=== PATIENT | male | born 1980 | race African-American/Black ===

== ENCOUNTER 2019-04-10 10:58 | Inpatient (IN) | payer OTHER ==
[2019-04-10 11:30] LABS: #Basophils 0.1 thou/uL (0.0-0.2); #Eosinphils 0.1 thou/uL (0.0-0.7); #Monocytes 0.5 thou/uL (0.11-0.59); #Neutrophils 3.1 thou/uL (1.40-6.50); %Basophils 1.2 % (0.0-1.0); %Eosinophils 0.9 % (0.0-10.0); %Lymphocytes 35.4 % (21.0-51.0); %Neutrophils 54.5 % (42.0-75.0); Hemoglobin 15.4 g/dL (14.0-18.0); Mean Corpuscular HGB CONC 34.4 g/dL (32.0-36.0); Mean Corpuscular Hemoglobin 28.2 pg (27.0-31.0); Mean Corpuscular Volume 81.9 fL (78.0-98.0); Mean Platelet Volume 8.6 fL (7.4-10.4); Platelet Count 271 thou/uL (130-400); RBC Distribution Width 11.6 % (11.5-14.5); Red Blood Cell (RBC) Count 5.47 mill/uL (4.70-6.10); White Blood Cell (WBC) Count 5.7 thou/uL (4.8-10.8)
[2019-04-10 11:47] LABS: Bilirubin Negative (Negative); Blood, Urine Negative (Negative); Clarity Clear (Clear); Glucose, Urine (Dipstick) Greater than 1000 mg/dL (Negative); Leukocyte Negative Leu/uL (Negative); Nitrite Negative (Negative); Protein, Urine (Dipstick) Negative (Neg-Trace); Urobilinogen Normal mg/dL (Less than 2)
[2019-04-10 11:55] LABS: ALT (SGPT) 20 U/L (8-55); AST (SGOT) 18 U/L (5-34); Albumin 4.8 g/dL (3.5-5.0); Alkaline Phosphatase 195 U/L (40-150); Anion Gap 21 mmol/L (10-20); BUN (Urea Nitrogen) 11 mg/dL (8.9-20.6); Bilirubin, Total 0.6 mg/dL (0.2-1.2); Calc. Creatinine Clearance 0 mL/min (70-130); Calcium 10.5 mg/dL (7.8-10.44); Carbon Dioxide 21 mmol/L (22-29); Chloride 95 mmol/L (98-107); Estimated GFR-MDRD 56; Globulin 3.4 g/dL (2.4-3.5); Glucose 514 mg/dL (70-105); Lipase 20 U/L (8-78); Potassium 4.1 mmol/L (3.5-5.1); Protein, Total 8.2 g/dL (6.0-8.3); Sodium 133 mmol/L (136-145)
[2019-04-10] MEDS ORDERED: Insulin Regular 100 units/100 ml in NS IVPB SCH (12:45)
[2019-04-10] MEDS ORDERED: 1/2 NS w/KCL 20 mEq 1,000 ML IV SCH (12:45)
--- NOTE | 2019-04-10 14:02 | PDOC.FPRHP ---
- History of Present Illness Chief Complaint: polydipsia/polyuria History of Present Illness: 39 yo previously healthy M, currently incarcerated, presents for polydipsia and polyuria. Patient states that he has been very thirsty and voiding frequently over the past month. He went to the [facility] as he was concerned that he may have diabetes. They checked his blood sugar and it was in the 500s, so he was sent to the hospital. Associated symptoms include wt loss of 26 lbs over the past month. Patient has a family history of diabetes in his mother and maternal grandmother , unknown type. - Allergies/Adverse Reactions Allergies Allergy/AdvReac Type Severity Reaction Status Date / Time No Known Allergies Allergy Unverified 04/10/19 12:30 - History PMHx: None PSHx: [place] teeth FHx: DM in mother, m GM. HTN in mother. Cancer, unknown type in mother and uncle. Denies cardiac disease. Social: Denies t/a/d. Currently incarcerated. Says he is to be released in the next few days. - Review of Systems General: reports: weight/appetite/sleep changes (decreased weight, normal appetite and eating well) Eyes: denies: eye pain, vision changes ENT: denies: nasal congestion, rhinorrhea Respiratory: denies: cough, congestion, shortness of breath Cardiovascular: reports: chest pain (reports chest pain last night, now resolved ). denies: palpitation Gastrointestinal: denies: nausea, vomiting, diarrhea, constipation, abdominal pain, GI bleeding Genitourinary: reports: polyuria. denies: dysuria, other (hematuria) Skin: denies: rashes, lesions Musculoskeletal: denies: pain, tenderness Neurological: denies: numbness, weakness Psychological: denies: anxiety, depression - Vital signs 144/81, Pulse: 96, Resp: 18, Temp: 98.8 ORAL, Pain: 0, O2 sat: 100 on RA, Time: 04/10/2019 12:21. - Physical Exam Constitutional: NAD, awake, alert and oriented, well developed HEENT: normocephalic and atraumatic, PERRLA, conjunctiva clear, MMM, oropharynx clear Neck: supple, no LAD Heart: RRR, normal S1/S2, no murmurs/rubs/gallops Lungs: CTAB, no wheezing Abdomen: soft, non-tender, bowel sounds present, no masses/distention Musculoskeletal: normal structure, normal tone Neurological: no focal deficit, CN II-XII intact Skin: no rash/lesions, good turgor, capillary refill <2 seconds Heme/Lymphatic: no unusual bruising or bleeding, no purpura Psychiatric: normal mood and affect, good judgment and insight, intact recent and remote memory FMR H&P: Results - Labs Result Diagrams: 04/10/19 11:21 04/10/19 11:21 Lab results: WBC 5.7 thou/uL (4.8-10.8) 04/10/19 11:21 Hgb 15.4 g/dL (14.0-18.0) 04/10/19 11:21 Hct 44.8 % (42.0-52.0) 04/10/19 11:21 MCV 81.9 fL (78.0-98.0) 04/10/19 11:21 Plt Count 271 thou/uL (130-400) 04/10/19 11:21 Neutrophils % 54.5 % (42.0-75.0) 04/10/19 11:21 Sodium 133 mmol/L (136-145) L 04/10/19 11:21 Potassium 4.1 mmol/L (3.5-5.1) 04/10/19 11:21 Chloride 95 mmol/L (98-107) L 04/10/19 11:21 Carbon Dioxide 21 mmol/L (22-29) L 04/10/19 11:21 BUN 11 mg/dL (8.9-20.6) 04/10/19 11:21 Creatinine 1.39 mg/dL (0.7-1.3) H 04/10/19 11:21 Glucose 514 mg/dL (70-105) H 04/10/19 11:21 Calcium 10.5 mg/dL (7.8-10.44) H 04/10/19 11:21 Total Bilirubin 0.6 mg/dL (0.2-1.2) 04/10/19 11:21 AST 18 U/L (5-34) 04/10/19 11:21 ALT 20 U/L (8-55) 04/10/19 11:21 Alkaline Phosphatase 195 U/L (40-150) H 04/10/19 11:21 Serum Total Protein 8.2 g/dL (6.0-8.3) 04/10/19 11:21 Albumin 4.8 g/dL (3.5-5.0) 04/10/19 11:21 Lipase 20 U/L (8-78) 04/10/19 11:21 Urine Ketones 80 mg/dL (Negative) A 04/10/19 11:24 Urine Blood Negative (Negative) 04/10/19 11:24 Urine Nitrite Negative (Negative) 04/10/19 11:24 Ur Leukocyte Esterase Negative Dori/uL (Negative) 04/10/19 11:24 FMR H&P: A/P - Problem List (1) DKA (diabetic ketoacidoses) Current Visit: Yes Status: Acute Code(s): E11.10 - TYPE 2 DIABETES MELLITUS WITH KETOACIDOSIS WITHOUT COMA (2) Weight loss, abnormal Current Visit: Yes Status: Acute Code(s): R63.4 - ABNORMAL WEIGHT LOSS - Plan DKA, 2/2 new onset T1DM -Glucose >500. Anion gap of 17. Beta hydroxybutyrate elevated to 5.93. Admit patient to IMCU and start DKA protocol. -Patient will likely be able to be transferred to the floor later today -A1C, Insulin, C-peptide Abnormal Weight Loss -26 lbs lost over past month, likely 2/2 to the above - HIV, RPR, Hep C, TSH. Diet: NPO until off insulin drip, then CC DVT ppx: Lovenox GI ppx: none [facility]CP: [facility] Dispo: admit to IMCU
[2019-04-10] MEDS ORDERED: Dextrose 5 %-0.45 % NaCl 1,000 ML IV PRN (14:37)
[2019-04-10] MEDS ORDERED: Sodium Chloride 0.9% 1,000 ML IV PRN ×4 (14:37)
[2019-04-10] MEDS ORDERED: NS 0.9% w/ 20 MEQ KCL 1,000 ML IV PRN ×2 (14:37)
[2019-04-10] MEDS ORDERED: CCU Electrolyte Replacement 1 EACH IVPB ONE (14:37)
[2019-04-10] MEDS ORDERED: Magnesium Oxide 400 MG TAB PO PRN ×2 (14:43)
[2019-04-10] MEDS ORDERED: Potassium Phosphate 12 MMOL in Sodium Chloride 0.9% 250 ML 250 ML IV PRN (14:43)
[2019-04-10] MEDS ORDERED: Potassium Chloride 20 MEQ TAB PO PRN (14:43)
[2019-04-10] MEDS ORDERED: CCU ELECTROLYTE REPLACEMENT PROTOCOL FS PRN (14:43)
[2019-04-10] MEDS ORDERED: Magnesium 2 GM/50 ML 2 GM in Premix Bag 1 BAG IVPB PRN (14:43)
[2019-04-10] MEDS ORDERED: Potassium Phosphate 9 MMOL in Sodium Chloride 0.9% 100 ML IVPB PRN (14:43)
[2019-04-10] MEDS ORDERED: Potassium Chloride 40 MEQ in Sodium Chloride 0.9% 250 ML 250 ML IVPB PRN (14:43)
[2019-04-10] MEDS ORDERED: Potassium Phosphate 15 MMOL in Sodium Chloride 0.9% 250 ML 250 ML IV PRN (14:43)
[2019-04-10] MEDS ORDERED: PHOS-NAK 1 PKT PACK PO PRN ×2 (14:43)
[2019-04-10] MEDS ORDERED: Potassium Chloride 40 MEQ in Premix Bag 1 BAG IVPB PRN (14:43)
[2019-04-10] MEDS ORDERED: HUMULIN R 100 UNITS in Sodium Chloride 0.9% 100 ML IVPB SCH (14:45)
[2019-04-10] MEDS ORDERED: Dextrose 50% Abboject 50 ML SYRINGE SLOW IVP PRN (16:20)
[2019-04-10] MEDS ORDERED: Dextrose 5% in Water 1,000 ML IV PRN (16:20)
[2019-04-10] MEDS ORDERED: Ondansetron PF 4 MG/2 ML Vial IVP PRN ×2 (16:22→19:26)
[2019-04-10 16:24] LABS: Anion Gap 19 mmol/L (10-20); BUN (Urea Nitrogen) 9 mg/dL (8.9-20.6); Calc. Creatinine Clearance 0 mL/min (70-130); Calcium 9.6 mg/dL (7.8-10.44); Carbon Dioxide 21 mmol/L (22-29); Chloride 104 mmol/L (98-107); Estimated GFR-MDRD Greater than 90; Glucose 202 mg/dL (70-105); Potassium 3.5 mmol/L (3.5-5.1); Sodium 140 mmol/L (136-145)
[2019-04-10 16:39] LABS: HIV (1/2) Antibody/Antigen Non-Reactive (NonReactive); HIV 1/2 INDEX 0.06 S/CO (<1.00); Hep C IgG Ab Non-Reactive (NonReactive); Hep C Index 0.04 S/CO (0-0.79); Syphilis Antibody Nonreactive (Nonreactive); Syphilis Antibody Index 0.04 S/CO (<1.00 Non-Reactive); Thyroid Stimulating Hormone 0.4771 uIU/mL (0.35-4.94)
[2019-04-10] MEDS ORDERED: Dextrose 50% Abboject 50 ML SYRINGE ONE (17:49)
[2019-04-10] MEDS: D5 1/2 NS w/20 mEq KCL 1,000 ML IV PRN ×2 (19:15→23:14)
[2019-04-10] MEDS: 1/2 NS w/KCL 20 mEq 1,000 ML IV SCH ×2 (19:15→20:42)
[2019-04-10] MEDS ORDERED: Ondansetron ODT 4 MG TAB PO PRN (19:26)
[2019-04-10] MEDS ORDERED: Enoxaparin Sodium 40 MG/0.4 ML SYRINGE SC SCH (19:45)
[2019-04-10 19:47] VITALS: BMI 22.6
[2019-04-10 19:53] LABS: Anion Gap 12 mmol/L (10-20); BUN (Urea Nitrogen) 8 mg/dL (8.9-20.6); Calc. Creatinine Clearance 127 mL/min (70-130); Calcium 8.8 mg/dL (7.8-10.44); Carbon Dioxide 23 mmol/L (22-29); Chloride 105 mmol/L (98-107); Estimated GFR-MDRD Greater than 90; Glucose 130 mg/dL (70-105); Potassium 3.3 mmol/L (3.5-5.1); Sodium 137 mmol/L (136-145)
[2019-04-10 23:07] LABS: Amphetamine Not Detected (NotDetected); Barbiturates Screen Not Detected (NotDetected); Benzodiazepine Screen Not Detected (NotDetected); Cocaine Metabolite Screen Not Detected (NotDetected); Medtox Control Line Valid? VALID (VALID); Medtox Reader # READER 4; Methadone Not Detected (NotDetected); Methamphetamine Not Detected (NotDetected); Opiate Screen Not Detected (NotDetected); Oxycodone Screen Not Detected (NotDetected); Phencyclidine (PCP) Not Detected (NotDetected); THC/Cannabinoid Screen Not Detected (NotDetected); Tricyclic Screen Not Detected (NotDetected)
[2019-04-10 23:42] LABS: Anion Gap 13 mmol/L (10-20); BUN (Urea Nitrogen) 9 mg/dL (8.9-20.6); Calc. Creatinine Clearance 135 mL/min (70-130); Calcium 8.3 mg/dL (7.8-10.44); Carbon Dioxide 22 mmol/L (22-29); Chloride 104 mmol/L (98-107); Estimated GFR-MDRD Greater than 90; Glucose 208 mg/dL (70-105); Potassium 3.4 mmol/L (3.5-5.1); Sodium 136 mmol/L (136-145)
[2019-04-11] MEDS ORDERED: Acetaminophen 325 MG TAB PO PRN (00:17)
[2019-04-11] MEDS: D5 1/2 NS w/20 mEq KCL 1,000 ML IV PRN ×2 (03:20→08:02)
[2019-04-11 05:15] LABS: Anion Gap 12 mmol/L (10-20); BUN (Urea Nitrogen) 9 mg/dL (8.9-20.6); Calc. Creatinine Clearance 132 mL/min (70-130); Calcium 8.7 mg/dL (7.8-10.44); Carbon Dioxide 22 mmol/L (22-29); Chloride 107 mmol/L (98-107); Estimated GFR-MDRD Greater than 90; Glucose 96 mg/dL (70-105); Potassium 3.6 mmol/L (3.5-5.1); Sodium 137 mmol/L (136-145)
[2019-04-11 05:41] VITALS: BP 106/61
--- NOTE | 2019-04-11 05:59 | PDOC.FM ---
- Subjective Subjective: Pt is doing well today. He does not have any complaints. He feels much better. Has appetite, no abdominal pain, diarrhea, constipation, N/V. - Objective Vital Signs & Weight: Vital Signs (12 hours) Temp Pulse Resp BP Pulse Ox 04/11/19 04:00 98.3 F 78 16 106/61 97 04/11/19 00:00 98.4 F 74 16 105/64 98 04/10/19 21:05 99.1 F 66 16 124/75 95 04/10/19 20:00 98 04/10/19 19:15 99.0 F 88 16 135/95 H 98 Weight Weight 77.791 kg I&O: 04/09/19 04/10/19 04/11/19 06:59 06:59 06:59 Intake Total 2518 Output Total 400 Balance 2118 Result Diagrams: 04/10/19 11:21 04/11/19 04:42 Phys Exam - Physical Examination Constitutional: NAD HEENT: PERRLA, moist MMs Respiratory: no wheezing, clear to auscultation bilateral Cardiovascular: RRR, no significant murmur Gastrointestinal: soft, non-tender, positive bowel sounds Musculoskeletal: no edema, pulses present Psychiatric: normal affect, A&O x 3 Dx/Plan (1) DKA (diabetic ketoacidoses) Code(s): E11.10 - TYPE 2 DIABETES MELLITUS WITH KETOACIDOSIS WITHOUT COMA Status: Acute (2) Weight loss, abnormal Code(s): R63.4 - ABNORMAL WEIGHT LOSS Status: Acute - Plan Plan: DKA, 2/2 new onset T1DM Glucose >500. Anion gap of 17. Beta hydroxybutyrate elevated to 5.93, Cpep 0.4 DKA protocol initiated and anion gap closed. Will begin SC insulin and d/c insulin pump. Pt remains stable can transfer to floor. - d/c insulin pump - NPH 10 U BID, Reg Insulin 3 U TID ac, Mild SSI - A1C pending, Lipid Panel pending Abnormal Weight Loss 26 lbs lost over past month, likely 2/2 to the above HIV negative, RPR no reactivity, Hep panel negative, TSH WNL Diet: 2000 calorie diet DVT ppx: Lovenox GI ppx: none PCP: [facility], [facility] patient Dispo: admit to [facility] Addendum - Attending - Attending Attestation Date/Time: 04/11/19 9060 I personally evaluated the patient and discussed the management with Dr. Anthony. I agree with the History, Examination, Assessment and Plan documented above with any addition or exceptions noted below.
[2019-04-11] MEDS: Enoxaparin Sodium 40 MG/0.4 ML SYRINGE SC SCH (08:01)
[2019-04-11] MEDS ORDERED: HumaLOG 300 UNITS/3 ML VIAL SC PRN (10:41)
[2019-04-11] MEDS ORDERED: NPH, Human Insulin Isophane 300 UNIT/3 ML VIAL SC SCH ×2 (10:45→21:00)
[2019-04-11] MEDS: Insulin Regular 300 UNITS/3 ML VIAL SC SCH ×2 (11:20→16:41)
[2019-04-11 12:24] LABS: Hemoglobin A1c 16.1 % (4.0-6.0)
[2019-04-11 12:39] LABS: Cardiac Risk 2.6 (Less than 4.5)
--- NOTE | 2019-04-12 06:00 | PDOC.FM ---
- Subjective Subjective: Pt has no complaints today. He is doing well. - Objective Vital Signs & Weight: Vital Signs (12 hours) Temp Pulse Ox 04/12/19 04:00 98.4 F 04/11/19 23:29 98.4 F 04/11/19 20:00 98.7 F 96 Weight Admit Weight 77.791 kg Weight 77.791 kg Most Recent Monitor Data Heart Rate from ECG 69 NIBP 98/58 NIBP BP-Mean 71 Respiration from ECG 16 SpO2 95 I&O: 04/10/19 04/11/19 04/12/19 06:59 06:59 06:59 Intake Total 2769 3208 Output Total 400 1655 Balance 2369 1553 Result Diagrams: 04/10/19 11:21 04/12/19 06:44 Phys Exam - Physical Examination Constitutional: NAD HEENT: PERRLA, sclera anicteric Respiratory: no wheezing, clear to auscultation bilateral Cardiovascular: RRR, no significant murmur Gastrointestinal: soft, non-tender, positive bowel sounds Musculoskeletal: no edema, pulses present Dx/Plan (1) DKA (diabetic ketoacidoses) Code(s): E11.10 - TYPE 2 DIABETES MELLITUS WITH KETOACIDOSIS WITHOUT COMA Status: Acute (2) Weight loss, abnormal Code(s): R63.4 - ABNORMAL WEIGHT LOSS Status: Acute - Plan Plan: Glucose >500. Anion gap of 17. Beta hydroxybutyrate elevated to 5.93, Cpep 0.4 DKA protocol initiated and anion gap closed. Will begin SC insulin and d/c insulin pump. At this time will titrate long acting insulin, pt is fine to discharge as gap is closed, follow up in retirement. Advised he finds a PCP once he is released in the next few days. - Increase NPH 14 U BID, Reg Insulin 4 U TID ac, Mild SSI - A1C pending, Lipid Panel pending Abnormal Weight Loss 26 lbs lost over past month, likely 2/2 to the above HIV negative, RPR no reactivity, Hep panel negative, TSH WNL Diet: 2000 calorie diet DVT ppx: Lovenox GI ppx: none PCP: [facility], [facility] patient Dispo: discharge Addendum - Attending - Attending Attestation Date/Time: 04/13/19 [id number] I personally evaluated the patient and discussed the management with Dr. Anthony. I agree with the History, Examination, Assessment and Plan documented above with any addition or exceptions noted below.
[2019-04-12] MEDS: Insulin Regular 300 UNITS/3 ML VIAL SC SCH (06:08)
[2019-04-12 07:21] LABS: Anion Gap 11 mmol/L (10-20); BUN (Urea Nitrogen) 8 mg/dL (8.9-20.6); Calc. Creatinine Clearance 113 mL/min (70-130); Calcium 8.6 mg/dL (7.8-10.44); Carbon Dioxide 25 mmol/L (22-29); Chloride 102 mmol/L (98-107); Estimated GFR-MDRD Greater than 90; Glucose 255 mg/dL (70-105); Potassium 3.6 mmol/L (3.5-5.1); Sodium 134 mmol/L (136-145)
[2019-04-12 07:34] VITALS: TEMP 97.6
[2019-04-12] MEDS ORDERED: NPH, Human Insulin Isophane 300 UNIT/3 ML VIAL SC SCH (09:00)
[2019-04-12] MEDS: Enoxaparin Sodium 40 MG/0.4 ML SYRINGE SC SCH (09:29)
[2019-04-12] MEDS ORDERED: Insulin Regular 300 UNITS/3 ML VIAL SC SCH (11:30)
--- NOTE | 2019-04-13 15:22 | EKG ---
Test Reason : Blood Pressure : / mmHG Vent. Rate : 071 BPM Atrial Rate : 071 BPM P-R Int : 146 ms QRS Dur : 098 ms QT Int : 352 ms P-R-T Axes : 062 050 014 degrees QTc Int : 382 ms Normal sinus rhythm Nonspecific ST and T wave abnormality Abnormal ECG Confirmed by KVNG SANDOVAL DO ([id number]), makeup editor DIA PACHECO ([id number]) on 04/13/2019 3:21:43 PM Referred By: Confirmed By:KVNG SANDOVAL DO
--- NOTE | 2019-04-15 03:46 | DIS ---
DATE OF ADMISSION: 04/10/2019 DATE OF DISCHARGE: 04/12/2019 RESIDENT: Samy Anthony DO ADMITTING ATTENDING: Santos Montes MD DISCHARGE ATTENDING: Harris Aponte MD CONSULTS: None. PROCEDURES: None. PRIMARY DIAGNOSES: 1. New onset diabetes mellitus. 2. Diabetic ketoacidosis. 3. Abnormal weight loss. DISCHARGE MEDICATIONS: 1. NPH 14 units subcutaneous b.i.d. 2. Humulin 4 units subcutaneous with meals. DISCONTINUED MEDICATIONS: None. HISTORY OF PRESENT ILLNESS/HOSPITAL COURSE: Misael Werner is a 39-year-old male without any significant past medical history, who presented to the hospital with polyuria, polydipsia and fatigue over the past month. He presented to the [facility] as he was concerned that he might have diabetes. They checked his blood sugars and was in the 500s, so he went to the hospital. He also had 26 pounds weight loss in the last month. His mother and maternal grandmother both had diabetes of unknown type. The patient had an initial anion gap of 17, beta hydroxybutyrate was elevated at 5.93. The patient was admitted to the [facility] and DKA protocol was started. Once his gap was closed, NPH was started and the patient was able to eat. He was also placed on regular insulin with meals. By the time of discharge, he was requiring 14 units b.i.d. of NPH, regular insulin 4 units with meals. His blood sugars were still ranging around 200s to 250s on discharge, so, in the outpatient setting, his insulin will need to be further titrated. [facility], so he was instructed to follow up as soon as he can in the outpatient setting with a physician. He agreed to this. A1c was found to be 16.1. Lipid panel was pretty good. Cholesterol 162, triglycerides 53, LDL 88, HDL 63. TSH was within normal limits. His 26-pound weight loss was likely secondary to new onset diabetes. His HIV, hepatitis panel, and RPR were negative. DISPOSITION: Stable. DISCHARGE INSTRUCTIONS: 1. Location: [facility]. 2. Diet: Diabetic healthy. 3. Activity: Ad jaxson. 4. Followup: Follow up with the [facility] to titrate medications. Job ID: [id number] [id number]
== END 2019-04-12 14:05 | DRG 639 ==
LOC: ERS 10:58 → EEVIPCON 10:58 → EDSEX 10:58 → ERHOLD 15:45 → IMCU/EMU 19:10
PROVIDERS: ADMIT Family Medicine; ATTEND Family Medicine
DX: E10.10 Type 1 diabetes mellitus with ketoacidosis without coma (principal); R63.4 Abnormal weight loss; Z68.22 Body mass index [BMI] 22.0-22.9, adult
CPT/HCPCS: 36415; 36416; 80048; 80053; 80061; 80306; 81003; 82010; 83036; 83525; 83690; 84443; 84681; 85025; 86780; 86803; 87389; 93005; 94760; 96360; 96361; 96365; 96366; J1650; J1815; J3480; J3490